=== PATIENT | male | born 1950 | race Caucasian/White ===

== ENCOUNTER 2025-05-07 09:29 | Inpatient (IN) | payer MEDICARE, MEDICAID ==
[~2025-05-07] VITALS: Ht 177.8 cm; Wt 84.8 kg
[2025-05-07 09:31] VITALS: O2SAT 92
[2025-05-07] MEDS ORDERED: VANCOMYCIN 1.5GM/250ML 250 ML IV STA (09:38)
[2025-05-07] MEDS ORDERED: CEFEPIME 2GM IN DEXT 5% 100ML IV ONE (09:45)
[2025-05-07 10:05] LABS: HEMATOCRIT. 35.2 % (42.0-52.0); HEMOGLOBIN. 11.8 g/dL (14.0-18.0); MEAN PLATELET VOLUME 7.7 fl (7.4-10.4); PLATELET 168 x1000/uL (130-400); RED BLOOD CELL COUNT 3.74 mill/uL (4.7-6.1); RED CELL DISTRIBUTION WIDTH 14.4 % (11.6-14.6)
[2025-05-07] MEDS: CEFEPIME 2,000MG in DEXT 5% WATER 100ML IV NR (10:06)
[2025-05-07] MEDS: ACETAMINOPHEN 325MG TABLET PO ONE (10:13)
[2025-05-07 10:29] LABS: CREATININE 1.0 mg/dL (0.6-1.3)
[2025-05-07 10:30] LABS: TROPONIN I HIGH SENSITIVITY 32 ng/L (3.0-53); UREA NITROGEN BLOOD 18 mg/dL (9-23)
[2025-05-07 10:32] LABS: ASPARTATE AMINOTRANSFERASE 30 IU/L (<34); BILIRUBIN DIRECT 0.1 mg/dL (<=3.0); BILIRUBIN TOTAL 0.4 mg/dL (0.1-1.0); PROTEIN TOTAL 7.0 g/dL (6.0-8.3)
[2025-05-07] MEDS ORDERED: CLONIDINE 0.1MG TABLET PO PRN (10:45)
[2025-05-07] MEDS ORDERED: ACETAMINOPHEN 650MG SUPP PR PRN (10:45)
[2025-05-07] MEDS ORDERED: ONDANSETRON HCL 4MG/2ML INJ IV PRN (10:45)
[2025-05-07] MEDS: VANCOMYCIN 1.5GM PMX (XELLIA) 300 ML IV NR (11:25)
[2025-05-07 11:57] LABS: TROPONIN I HIGH SENSITIVITY 31 ng/L (3.0-53)
[2025-05-07] MEDS: DEXT 5%/0.45% NACL 1000ML 1,000 ML IV SCH (12:06)
[2025-05-07 16:00] VITALS: BP 110/53; PULSE 68; RESP 18; TEMP 38; O2SAT 95
[2025-05-07] MEDS ORDERED: HALO10TA13 PO (16:05)
[2025-05-07] MEDS ORDERED: LACT-390 PO (16:05)
[2025-05-07] MEDS ORDERED: LITH300C3 PO (16:05)
[2025-05-07] MEDS ORDERED: DIVA-75 PO (16:05)
[2025-05-07 16:12] VITALS: BP 110/53; PULSE 68; RESP 18; TEMP 38; O2SAT 98
[2025-05-07 18:31] LABS: BAND% 4.0 % (1.0-6.0); LYMPHOCYTES % MANUAL 6.0 % (20.0-50.0); MONOCYTES % MANUAL 7.0 % (2.0-8.0); NEUTROPHILS % MANUAL 83.0 % (45.0-75.0); PLATELET ESTIMATE NORMAL
[2025-05-07 20:00] VITALS: BP 120/80; PULSE 69; RESP 20; TEMP 36.7; O2SAT 98
[2025-05-07] MEDS: CEFTRIAXONE 1GM/50ML 50 ML IV SCH (22:05)
[2025-05-08] VITALS (7 sets, daily range): BP systolic 102–125; BP diastolic 51–72; PULSE 58–74; RESP 16–20; TEMP 36.7–37.3632; O2SAT 91–98
[2025-05-08] MEDS ORDERED: DEXTROSE 50% WATER 50ML SYRINGE IV PRN (04:00)
[2025-05-08] MEDS: BLOOD SUGAR DIAGNOSTIC STRIP TEST SCH (07:10)
[2025-05-08] MEDS: INSULIN LISPRO 100 UNITS/ML SUBCUT SCH (07:40)
[2025-05-08] MEDS: DIVALPROEX SODIUM 500MG DR TABLET PO SCH (09:00)
[2025-05-08] MEDS ORDERED: AMLODIPINE 2.5MG TABLET PO SCH (09:00)
[2025-05-08] MEDS: AMLODIPINE 2.5MG TABLET NG SCH (09:00)
[2025-05-08 09:39] LABS: HEMATOCRIT. 31.9 % (42.0-52.0); HEMOGLOBIN. 10.8 g/dL (14.0-18.0); MEAN PLATELET VOLUME 8.6 fl (7.4-10.4); PLATELET 150 x1000/uL (130-400); RED BLOOD CELL COUNT 3.41 mill/uL (4.7-6.1); RED CELL DISTRIBUTION WIDTH 14.1 % (11.6-14.6)
[2025-05-08 10:05] LABS: TROPONIN I HIGH SENSITIVITY 23 ng/L (3.0-53)
[2025-05-08 10:08] LABS: CREATININE 0.9 mg/dL (0.6-1.3)
[2025-05-08 10:09] LABS: UREA NITROGEN BLOOD 21 mg/dL (9-23)
[2025-05-08 10:55] LABS: VITAMIN B12 SERUM 786 pg/mL (211-911)
[2025-05-08] MEDS: ENOXAPARIN 40MG/0.4ML SYR SUBCUT SCH (11:50)
[2025-05-08 17:10] LABS: LYMPHOCYTES % MANUAL 1.0 % (20.0-50.0); MONOCYTES % MANUAL 5.0 % (2.0-8.0); NEUTROPHILS % MANUAL 94.0 % (45.0-75.0); PLATELET ESTIMATE NORMAL
[2025-05-08] MEDS: MAGNESIUM OXIDE 400MG TABLET PO SCH (18:36)
[2025-05-08] MEDS: HALOPERIDOL 0.5MG TABLET PO SCH (22:18)
[2025-05-09] VITALS: BP 104/50; PULSE 67; RESP 17; TEMP 37; O2SAT 91
[2025-05-09 04:00] VITALS: BP 104/59; PULSE 67; RESP 18; TEMP 36.7; O2SAT 92
[2025-05-09 06:57] LABS: HEMATOCRIT. 27.5 % (42.0-52.0); HEMOGLOBIN. 9.7 g/dL (14.0-18.0); MEAN PLATELET VOLUME 8.1 fl (7.4-10.4); PLATELET 154 x1000/uL (130-400); RED BLOOD CELL COUNT 2.98 mill/uL (4.7-6.1); RED CELL DISTRIBUTION WIDTH 13.6 % (11.6-14.6)
[2025-05-09 07:23] LABS: CREATININE 0.7 mg/dL (0.6-1.3)
[2025-05-09 07:24] LABS: UREA NITROGEN BLOOD 17 mg/dL (9-23)
[2025-05-09 08:00] VITALS: BP 96/53; PULSE 63; RESP 18; TEMP 36.8; O2SAT 99
[2025-05-09] MEDS: LITHIUM CARBONATE 150 MG CAPSULE PO SCH (08:22)
[2025-05-09] MEDS: VANCOMYCIN 1.5GM PMX (XELLIA) 300 ML IV SCH (09:41)
[2025-05-09 11:56] VITALS: BP 128/72; PULSE 62; RESP 18; TEMP 37.1; O2SAT 98
[2025-05-09 13:57] LABS: BAND% 25.0 % (1.0-6.0); LYMPHOCYTES % MANUAL 11.0 % (20.0-50.0); MONOCYTES % MANUAL 8.0 % (2.0-8.0); NEUTROPHILS % MANUAL 56.0 % (45.0-75.0); PLATELET ESTIMATE NORMAL
[2025-05-09 16:00] VITALS: BP 125/68; PULSE 87; RESP 18; TEMP 37.3; O2SAT 98
[2025-05-09 20:00] VITALS: BP 119/75; PULSE 66; RESP 18; TEMP 36.2; O2SAT 97
[2025-05-09] MEDS: VANCOMYCIN 750MG PMX (XELLIA) 150 ML IV SCH (21:57)
[2025-05-10] VITALS: BP 130/69; PULSE 70; RESP 18; TEMP 36.7; O2SAT 99
[2025-05-10 04:00] VITALS: BP 137/71; PULSE 89; RESP 18; TEMP 36.3; O2SAT 98
[2025-05-10 07:08] LABS: LITHIUM SERUM 0.7 mmol/L (0.5-1.2)
[2025-05-10 08:00] VITALS: BP 116/66; PULSE 100; RESP 18; TEMP 37; O2SAT 93
[2025-05-10 11:03] LABS: HEMATOCRIT. 30.6 % (42.0-52.0); HEMOGLOBIN. 10.2 g/dL (14.0-18.0); MEAN PLATELET VOLUME 8.5 fl (7.4-10.4); PLATELET 207 x1000/uL (130-400); RED BLOOD CELL COUNT 3.28 mill/uL (4.7-6.1); RED CELL DISTRIBUTION WIDTH 14.2 % (11.6-14.6)
[2025-05-10 11:20] LABS: CREATININE 0.6 mg/dL (0.6-1.3); UREA NITROGEN BLOOD 12 mg/dL (9-23)
[2025-05-10 12:00] VITALS: BP 127/55; PULSE 86; RESP 18; TEMP 36.9; O2SAT 94
[2025-05-10 16:00] VITALS: BP 118/74; PULSE 67; RESP 18; TEMP 37.2; O2SAT 94
[2025-05-10] MEDS: AMPICILLIN 2GM/100ML 100 ML IV SCH (16:43)
[2025-05-10 16:53] LABS: CLARITY URINE CLEAR (CLEAR); COLOR URINE YELLOW (YELLOW); GLUCOSE URINE NEGATIVE (NEGATIVE); KETONES URINE NEGATIVE (NEGATIVE); LEUKOCYTE ESTERASE URINE NEGATIVE (NEGATIVE); NITRITE URINE NEGATIVE (NEGATIVE); OCCULT BLOOD URINE 2+ (NEGATIVE); PH URINE 7.0 (4.5-8.0); PROTEIN URINE NEGATIVE (NEGATIVE); SPECIFIC GRAVITY URINE 1.010 (1.005-1.030); UROBILINOGEN URINE 1.0 E.U./dL (0.2-1.0)
[2025-05-10 17:12] LABS: BACTERIA URINE NONE SEEN; RBC URINE 0-2 /hpf (0-2); SQUAMOUS EPITHELIAL CELL URINE NONE SEEN /lpf (RARE/1+); WBC URINE NONE SEEN /hpf (0-2); YEAST URINE NONE SEEN
[2025-05-10 20:00] VITALS: BP 132/61; PULSE 72; RESP 18; TEMP 36.6; O2SAT 96
[2025-05-10 20:08] LABS: BAND% 7.0 % (1.0-6.0); LYMPHOCYTES % MANUAL 11.0 % (20.0-50.0); MONOCYTES % MANUAL 11.0 % (2.0-8.0); NEUTROPHILS % MANUAL 71.0 % (45.0-75.0); PLATELET ESTIMATE NORMAL
[2025-05-11] VITALS: BP 117/67; PULSE 88; RESP 18; TEMP 36.2; O2SAT 99
[2025-05-11 04:00] VITALS: BP 129/69; PULSE 70; RESP 18; TEMP 36.6; O2SAT 99
[2025-05-11] MEDS ORDERED: ACETAMINOPHEN 650MG/20.3ML UDC PO PRN (05:00)
[2025-05-11] MEDS: ACETAMINOPHEN 650MG/20.3ML UDC PO PRN (05:19)
[2025-05-11 08:00] VITALS: BP 105/64; PULSE 55; RESP 18; TEMP 36.5; O2SAT 96
[2025-05-11 09:10] LABS: HEMATOCRIT. 29.1 % (42.0-52.0); HEMOGLOBIN. 9.9 g/dL (14.0-18.0); MEAN PLATELET VOLUME 8.5 fl (7.4-10.4); PLATELET 242 x1000/uL (130-400); RED BLOOD CELL COUNT 3.11 mill/uL (4.7-6.1); RED CELL DISTRIBUTION WIDTH 14.1 % (11.6-14.6)
[2025-05-11 09:34] LABS: CREATININE 0.6 mg/dL (0.6-1.3)
[2025-05-11 09:35] LABS: UREA NITROGEN BLOOD 11 mg/dL (9-23)
[2025-05-11 12:00] VITALS: BP 122/65; PULSE 60; RESP 18; TEMP 36.6; O2SAT 100
[2025-05-11 13:28] LABS: BAND% 25.0 % (1.0-6.0); EOSINOPHILS % MANUAL 3.0 % (0.0-5.0); LYMPHOCYTES % MANUAL 7.0 % (20.0-50.0); MONOCYTES % MANUAL 10.0 % (2.0-8.0); NEUTROPHILS % MANUAL 55.0 % (45.0-75.0); PLATELET ESTIMATE NORMAL
[2025-05-11 16:00] VITALS: BP 123/63; PULSE 62; RESP 18; TEMP 36.4; O2SAT 96
[2025-05-11 20:00] VITALS: BP 119/64; PULSE 63; RESP 18; TEMP 36.6; O2SAT 95
[2025-05-12] VITALS: BP 106/58; PULSE 61; RESP 17; TEMP 37.2; O2SAT 90
[2025-05-12 04:00] VITALS: BP 100/60; PULSE 65; RESP 17; TEMP 37.4; O2SAT 91
[2025-05-12 08:00] VITALS: BP 106/58; PULSE 63; RESP 18; TEMP 36.7; O2SAT 95
[2025-05-12 12:00] VITALS: BP 108/55; PULSE 57; RESP 18; TEMP 36.6; O2SAT 96
[2025-05-12 13:37] LABS: HEMATOCRIT. 28.9 % (42.0-52.0); HEMOGLOBIN. 9.7 g/dL (14.0-18.0); MEAN PLATELET VOLUME 7.9 fl (7.4-10.4); PLATELET 300 x1000/uL (130-400); RED BLOOD CELL COUNT 3.10 mill/uL (4.7-6.1); RED CELL DISTRIBUTION WIDTH 14.7 % (11.6-14.6)
[2025-05-12 13:54] LABS: CREATININE 0.5 mg/dL (0.6-1.3); UREA NITROGEN BLOOD 11 mg/dL (9-23)
[2025-05-12 16:00] VITALS: BP 117/58; RESP 18; TEMP 36.9; O2SAT 96
[2025-05-12 16:07] LABS: EOSINOPHILS % MANUAL 1.0 % (0.0-5.0); LYMPHOCYTES % MANUAL 12.0 % (20.0-50.0); MONOCYTES % MANUAL 12.0 % (2.0-8.0); NEUTROPHILS % MANUAL 75.0 % (45.0-75.0); PLATELET ESTIMATE NORMAL
[2025-05-12 20:00] VITALS: BP 104/61; PULSE 69; RESP 18; TEMP 36.3; O2SAT 96
[2025-05-13] VITALS: BP 118/58; PULSE 62; RESP 18; TEMP 36.9; O2SAT 96
[2025-05-13 04:00] VITALS: BP 135/69; PULSE 69; RESP 18; TEMP 36.7; O2SAT 96
[2025-05-13 06:50] LABS: CREATININE 0.6 mg/dL (0.6-1.3); UREA NITROGEN BLOOD 11 mg/dL (9-23)
[2025-05-13 07:04] LABS: HEMATOCRIT. 27.8 % (42.0-52.0); HEMOGLOBIN. 9.4 g/dL (14.0-18.0); MEAN PLATELET VOLUME 7.3 fl (7.4-10.4); PLATELET 306 x1000/uL (130-400); RED BLOOD CELL COUNT 2.95 mill/uL (4.7-6.1); RED CELL DISTRIBUTION WIDTH 14.6 % (11.6-14.6)
[2025-05-13 08:12] VITALS: BP 112/58; PULSE 60; RESP 19; TEMP 36.5; O2SAT 98
[2025-05-13 11:05] VITALS: BP 116/61; PULSE 79; RESP 16; TEMP 98.5
[2025-05-13 11:28] LABS: BAND% 11.0 % (1.0-6.0); EOSINOPHILS % MANUAL 1.0 % (0.0-5.0); LYMPHOCYTES % MANUAL 11.0 % (20.0-50.0); MONOCYTES % MANUAL 16.0 % (2.0-8.0); NEUTROPHILS % MANUAL 61.0 % (45.0-75.0); PLATELET ESTIMATE NORMAL
[2025-05-13 12:00] VITALS: BP 110/60; PULSE 63; RESP 18; TEMP 36.8; O2SAT 99
== END 2025-05-13 13:00 | DRG 871 ==
LOC: ER 09:29 → 8WST 09:48 → EDBEDREQ 10:24 → EDBEDREQTM 10:24
PROVIDERS: ADMIT Internal Medicine Nephrology; ATTEND Internal Medicine Nephrology
PROC: 4A00X4Z Measurement of Central Nervous Electrical Activity, External Approach (ICD-10-PCS; 2025-05-09)
PROC: 02HV33Z Insertion of Infusion Device into Superior Vena Cava, Percutaneous Approach (ICD-10-PCS; principal; 2025-05-11)
PROC: B548ZZA Ultrasonography of Superior Vena Cava, Guidance (ICD-10-PCS; 2025-05-11)
DX: A41.9 Sepsis, unspecified organism (principal); G93.41 Metabolic encephalopathy; J18.9 Pneumonia, unspecified organism; J96.01 Acute respiratory failure with hypoxia; N17.9 Acute kidney failure, unspecified; J44.0 Chronic obstructive pulmonary disease with (acute) lower respiratory infection; I73.9 Peripheral vascular disease, unspecified; F31.9 Bipolar disorder, unspecified; N18.9 Chronic kidney disease, unspecified; E83.42 Hypomagnesemia; I12.9 Hypertensive chronic kidney disease with stage 1 through stage 4 chronic kidney disease, or unspecified chronic kidney disease; R79.89 Other specified abnormal findings of blood chemistry; Z66 Do not resuscitate; F20.9 Schizophrenia, unspecified; F41.9 Anxiety disorder, unspecified; E78.5 Hyperlipidemia, unspecified; R13.10 Dysphagia, unspecified; Z96.649 Presence of unspecified artificial hip joint; Z79.899 Other long term (current) drug therapy; Y95 Nosocomial condition
CPT/HCPCS: 36415; 36573; 71045; 80048; 80076; 80178; 80202; 81003; 82607; 82962; 83036; 83735; 84145; 84443; 84484; 85025; 87077; 87186; 92610; 93005; 93306; 93970; 95816; 99285; A4606; C1725; J0290; J0692; J0696; J1650; J1815; J3373; J7060